=== PATIENT | female | born 1935 | race Caucasian/White ===

== ENCOUNTER 2021-11-28 10:26 | Day surgery (SDC) | payer MEDICARE, BC ==
[2021-11-26 09:20] VITALS: BMI 29.7
[~2021-11-28 10:26] MED LIST: LACTATED RINGERS 1,000 ML IV SCH
[2021-11-28 10:58] VITALS: TEMP 97
[2021-11-28] MEDS ORDERED: PROPOFOL 10 MG/ML 20 ML VIAL IV ONE (12:56)
[2021-11-28] MEDS ORDERED: LIDOCAINE 1% INJ 10MG/ML (20 ML MDV) ONE (12:56)
--- NOTE | 2021-11-28 13:08 | P.PCN ---
Date of Procedure: 11/28/21 Procedure(s) Performed: BRIEF HISTORY: Patient is a 86-year-old, pleasant, white female scheduled for an upper endoscopy as a part of evaluation of intermittent dysphagia to solids for the last 1 year duration. She had EGD with dilation in 2016. Also has history of GERD and presently on Nexium 20 mg daily.. PROCEDURE PERFORMED: Esophagogastroduodenoscopy with balloon dilation. PREOPERATIVE DIAGNOSIS: GERD/intermittent dysphagia to solids. IV sedation per anesthesia. PROCEDURE: After informed consent was obtained, the patient was brought into the endoscopy unit. IV sedation was administered by Anesthesia under continuous monitoring. Initially the Olympus GIF-140 video endoscope was inserted into the mouth. Esophagus intubated without any difficulty. It was gradually advanced into the stomach and duodenum and carefully examined. The bulb and the second part of the duodenum appeared normal. The scope at this time was withdrawn to the stomach, adequately insufflated with air, and upon careful examination, mucosa of the antrum, body, cardia and the fundus appeared normal. The scope was then withdrawn into the esophagus. Small hiatal hernia noted. The GE junction was located at 35 cm from the incisors. There was a distal esophageal Schatzki's ring noted which was dilated using 12-15 mm TTS balloon in a sequential fashion for 90 seconds. The rest of the esophagus appeared normal. There were no erosions or ulcerations seen and the patient tolerated the procedure well. IMPRESSION: 1. Distal esophageal Schatzki's ring status post balloon dilation using 12-15 mm TTS balloon as described above. 2. Small hiatal hernia. RECOMMENDATIONS: The findings of this examination were discussed with the patient well as her family. She was advised to continue the current medications, appeared clear liquid diet for lunch today and follow antireflux measures.
[2021-11-28 13:35] VITALS: BP 138/71; PULSE 66; RESP 18
== END 2021-11-28 13:49 | disposition home or self-care (01) ==
LOC: ORWHC2ENDO 10:26
PROVIDERS: ATTEND Internal Medicine Gastroenterology
DX: K22.2 Esophageal obstruction (principal); K44.9 Diaphragmatic hernia without obstruction or gangrene
CPT/HCPCS: 43249; J2001; J2704